=== PATIENT | male | born 1985 | race Caucasian/White ===

== ENCOUNTER 2024-02-26 15:13 | Emergency (ER) | payer OTHER ==
[~2024-02-26] VITALS: Ht 172.7 cm; Wt 130.2 kg
[2024-02-26 15:26] VITALS: BP 130/95; PULSE 68; RESP 16; TEMP 98.1; O2SAT 98
[2024-02-26] MEDS: LIDOCAINE MPF 1% 10 MG/ML VIAL INJ ONE (16:12)
[2024-02-26] MEDS ORDERED: BACI-418 TP (16:44)
[2024-02-26 17:11] VITALS: BP 128/82; PULSE 66; RESP 16; TEMP 98.1; O2SAT 99
== END 2024-02-26 17:11 | disposition home or self-care (01) ==
LOC: MED 15:13
DX: S61.411A Laceration without foreign body of right hand, initial encounter (principal); Z79.899 Other long term (current) drug therapy; W22.8XXA Striking against or struck by other objects, initial encounter; Y92.89 Other specified places as the place of occurrence of the external cause; Y93.89 Activity, other specified; Y99.8 Other external cause status
CPT/HCPCS: 12001; 90471; 90715; 99283; J2001

== ENCOUNTER 2024-03-14 08:33 | Emergency (ER) | payer OTHER ==
[~2024-03-14] VITALS: Ht 182.9 cm; Wt 107.5 kg
[~2024-03-14 08:33] MED LIST: BACI-418 TP
[2024-03-14 08:44] VITALS: BP 139/91; PULSE 66; RESP 16; TEMP 98; O2SAT 97
[2024-03-14] MEDS: LIDOCAINE MPF 1% 10 MG/ML VIAL INJ ONE (09:52)
[2024-03-14] MEDS ORDERED: ACET500T99 PO (11:13)
== END 2024-03-14 11:23 | disposition home or self-care (01) ==
LOC: MED 08:33
DX: S66.822A Laceration of other specified muscles, fascia and tendons at wrist and hand level, left hand, initial encounter (principal); R03.0 Elevated blood-pressure reading, without diagnosis of hypertension; Z79.899 Other long term (current) drug therapy; W22.8XXA Striking against or struck by other objects, initial encounter; Y92.89 Other specified places as the place of occurrence of the external cause; Y93.89 Activity, other specified; Y99.8 Other external cause status
CPT/HCPCS: 12001; 73130; 99283; J2003